=== PATIENT | female | born 1985 | race Caucasian/White ===

== ENCOUNTER 2017-07-23 10:29 | Emergency (ER) | payer MEDICAID ==
[~2017-07-23] VITALS: Ht 172.7 cm; Wt 90.0 kg
[2017-07-23 10:29] VITALS: BP 159/80
[2017-07-23] MEDS ORDERED: KETOROLAC 30 MG/1 ML IM ONE (11:00)
[2017-07-23] MEDS ORDERED: KETOROLAC 30 MG/1 ML ONE (11:06)
== END 2017-07-23 11:48 | disposition home or self-care (01) ==
LOC: ED 11:42
DX: M75.82 Other shoulder lesions, left shoulder (principal); X50.0XXA Overexertion from strenuous movement or load, initial encounter; Y93.89 Activity, other specified; Y92.89 Other specified places as the place of occurrence of the external cause; Y99.8 Other external cause status
CPT/HCPCS: 73030; 96372; 99284; J1885

== ENCOUNTER 2018-12-24 11:33 | Emergency (ER) | payer MEDICAID ==
[~2018-12-24] VITALS: Ht 175.3 cm; Wt 87.4 kg
[2018-12-24 12:00] LABS: MICROSCOPIC NOT IND
[2018-12-24] MEDS ORDERED: ONDANSETRON ODT 4 MG PO ONE (12:00)
[2018-12-24 12:03] LABS: CULTURE INDICATED? NO
[2018-12-24 12:57] LABS: BASOPHILS # (AUTO) 0.01 x10^3/uL (0-0.1); BASOPHILS % (AUTO) 0 % (0-1); EOSINOPHILS # (AUTO) 0.03 x10^3/uL (0-0.4); EOSINOPHILS % (AUTO) 1 % (1-7); LYMPHOCYTES # (AUTO) 1.22 x10^3/uL (1-3.4); LYMPHOCYTES % (AUTO) 36 % (22-44); MD NO; MEAN CORPUSCULAR HEMOGLOBIN 29.9 pg (27.0-34.8); MEAN CORPUSCULAR HGB CONC 34.4 g/dL (32.4-35.8); MEAN CORPUSCULAR VOLUME 86.8 fL (80-100); MEAN PLATELET VOLUME 10.1 fL (7.4-10.4); MONOCYTES # (AUTO) 0.54 x10^3/uL (0.2-0.8); MONOCYTES % (AUTO) 16 % (2-9); NEUTROPHILS # (AUTO) 1.56 x10^3/uL (1.8-6.8); NEUTROPHILS % (AUTO) 46 % (42-75); PLATELET COUNT 172 x10^3/uL (130-400); RED BLOOD COUNT 4.76 x10^6/uL (3.82-5.3); RED CELL DISTRIBUTION WIDTH 13.3 % (9.6-15.2)
[2018-12-24 13:06] LABS: ALANINE AMINOTRANSFERASE 17 U/L (12-78); ALBUMIN 3.5 g/dL (3.4-5.0); ANION GAP 5 mmol/L (5-15); CALCIUM 8.7 mg/dL (8.5-10.1); CHLORIDE 109 mmol/L (98-107); CREATININE 0.66 mg/dL (0.55-1.02)
[2018-12-24 13:11] LABS: ALKALINE PHOSPHATASE 34 U/L (45-117); BILIRUBIN,TOTAL 0.2 mg/dL (0.2-1.0); TOTAL PROTEIN 7.2 g/dL (6.4-8.2)
[2018-12-24] MEDS ORDERED: ONDANSETRON ODT 4 MG ONE (14:42)
[2018-12-24] MEDS ORDERED: KETOROLAC 30 MG/1 ML ONE (14:42)
[2018-12-24] MEDS ORDERED: ONDANSETRON ODT 8 MG PO ONE (15:00)
[2018-12-24] MEDS ORDERED: KETOROLAC 30 MG/1 ML IM ONE (15:00)
--- NOTE | 2018-12-24 15:03 | NUR ---
SH[facility] ABD PAIN RAD TO BACK/SHOUDLER, NAUSEA X2 DAYS PER TRIAGE NOTE RECEIVED REPORT FROM ALONSO ORTIZ PT IS IN CT NOW
--- NOTE | 2018-12-24 16:18 | NUR ---
PT IS WAITING FOR MD RECHECK
--- NOTE | 2018-12-24 16:53 | NUR ---
DC ORDER WAS RECEIVED BUT PT IS STILL WAITING FOR MD RECHECK
[2018-12-24] MEDS ORDERED: HYDROmorphone 1 MG/ML, 1ML IM ONE (17:00)
--- NOTE | 2018-12-24 17:01 | NUR ---
NOTIFIED TO DR MARVIN PER PT'S C/O PAIN DR MARVIN WILL SEE PT
[2018-12-24] MEDS ORDERED: ONDANSETRON ODT 8 MG ONE (17:13)
--- NOTE | 2018-12-24 17:16 | NUR ---
GIVEN MED ( DILAUDID WITH ZOFRAN ) PT IS RESTING WILL DC AFTER 1730
[2018-12-24 17:42] VITALS: BP 130/77
== END 2018-12-24 17:44 | disposition home or self-care (01) ==
LOC: ED 14:31
DX: R10.12 Left upper quadrant pain (principal); R11.0 Nausea
CPT/HCPCS: 36415; 74176; 76700; 80053; 81003; 83690; 84703; 85025; 86308; 96372; 99284; J1170; J1885; Q0162